=== PATIENT | male | born 1970 | race African-American/Black ===

== ENCOUNTER 2016-12-20 13:01 | Emergency (ER) | payer BC, OTHER ==
[2016-12-20] MEDS ORDERED: methylPREDNISolone Sodium Succinate 125 MG/2 ML SDV IM ONE (13:30)
--- NOTE | 2016-12-20 13:31 | EDM.PDOC ---
ED HPI GENERAL MEDICAL PROBLEM - General Chief Complaint: Skin Complaint Stated Complaint: RASH ON NECK Time Seen by Provider: 12/20/16 13:26 - History of Present Illness INITIAL COMMENTS - FREE TEXT/NARRATIVE: HISTORY AND PHYSICAL: History of present illness: The patient is a 46-year-old male who denies any pre-existing medical problems and follows with Dr. Cramer at [facility] and presents with a rash that is located on his upper extremities lower extremities and neck areas that he says he gets every year at this time of season change. The patient states that this round of the rash has been ongoing for the last several days but he has not seen his provider and has been using the cream that he was given last year for the same rash. The patient denies any systemic complaints of fever chills chest pain shortness of breath GI symptoms and has had no facial swelling sore throat or nasal congestion. The patient has not tried any eouh-psa-jeahpwa Benadryl Claritin or Noelle. The patient says he works on the [employer] and doesn't recall any specific contact with any new products that could've triggered this. He says that for the last several years this has not recurred always in the fall. Is never seen an ophthalmic surgical assistant or stile ripsaw operator. Review of systems: As per history of present illness and below otherwise all systems reviewed and negative. Past medical history: As per history of present illness and as reviewed below otherwise noncontributory. Surgical history: As per history of present illness and as reviewed below otherwise noncontributory. Social history: No reported history of drug or alcohol abuse. Family history: As per history of present illness and as reviewed below otherwise noncontributory. Physical exam: Gen.: Well-developed well-nourished man who is nontoxic and speaking clearly and easily in the ED. There is no visible evidence of any facial swelling HEENT: Atraumatic, normocephalic, pupils reactive, negative for conjunctival pallor or scleral icterus, mucous membranes moist, throat clear, neck supple, nontender, trachea midline. Lungs: Clear to auscultation, breath sounds equal bilaterally, chest nontender. Heart: S1S2, regular rate and rhythm no overt murmurs. Abdomen: Soft, nondistended, nontender. NABS Skin: There are raised urticarial small wheals noted on the upper thighs shoulders and neck area which are not confluent and there is some on the face as well. There are none on the back chest or abdomen. Genitourinary: Deferred. Rectal: Deferred. Extremities: Atraumatic, negative for cords or calf pain. Neurovascular unremarkable. Neuro: Awake, alert, oriented. Cranial nerves II through XII unremarkable. Cerebellum unremarkable. Motor and sensory unremarkable throughout. Exam nonfocal. Diagnostics: [] Therapeutics: SoluMedrol Patient states he needs to go to work later today so I'll refrain from giving him any Benadryl or Vistaril. I will send him home with advice to use over-the- counter Claritin or Noelle for the next 10 days as well as to use over-the- counter Benadryl for itching and A prednisone taper. I also advised that he needs to follow-up with his provider at [facility] for further care and evaluation Impression: Urticaria Definitive disposition and diagnosis as appropriate pending reevaluation and review of above. - Related Data Allergies Allergy/AdvReac Type Severity Reaction Status Date / Time No Known Allergies Allergy Verified 12/20/16 13:31 Home Meds: Home Meds . [No Known Home Meds] 12/20/16 [History] ED ROS GENERAL - Review of Systems Review Of Systems: ROS reveals no pertinent complaints other than HPI. ED EXAM, SKIN/RASH Exam: See Below (See dictation) Course - Orders/Labs/Meds Meds: Medications Discontinued Medications Generic Name Dose Route Start Last Admin Trade Name Steffenq PRN Reason Stop Dose Admin Methylprednisolone Sodium Succinate 125 mg 12/20/16 13:30 Solu-Medrol IM 12/20/16 13:31 ONETIME ONE Departure - Departure Time of Disposition: 13:36 Disposition: Home, Self-Care 01 Condition: Good Clinical Impression: Urticaria Contact dermatitis Qualifiers: Contact dermatitis type: unspecified Contact dermatitis trigger: unspecified trigger Qualified Code(s): L25.9 - Unspecified contact dermatitis, unspecified cause - Discharge Information Referrals: PCP,None [Primary Care Provider] - Forms: ED Department Discharge Additional Instructions: The following information is given to patients seen in the emergency department who are being discharged to home. This information is to outline your options for follow-up care. We provide all patients seen in our emergency department with a follow-up referral. The need for follow-up, as well as the timing and circumstances, are variable depending upon the specifics of your emergency department visit. If you don't have a primary care physician on staff, we will provide you with a referral. We always advise you to contact your personal physician following an emergency department visit to inform them of the circumstance of the visit and for follow-up with them and/or the need for any referrals to a consulting specialist. The emergency department will also refer you to a specialist when appropriate. This referral assures that you have the opportunity for followup care with a specialist. All of these measure are taken in an effort to provide you with optimal care, which includes your followup. Under all circumstances we always encourage you to contact your private physician who remains a resource for coordinating your care. When calling for followup care, please make the office aware that this follow-up is from your recent emergency room visit. If for any reason you are refused follow-up, please contact the [facility] emergency department at and ask to speak to the emergency department charge nurse. [address] [place] [address] Cramer for follow-up in the next few days for reevaluation and further care as we discussed. Return to ER as needed and as discussed. Please start taking zzod-smw-akwnlps Claritin or Noelle along with over-the- counter Benadryl 50 mg every 6 hours for itching when you're at home. Please do not take the Benadryl and go to work. Please also take the prednisone as prescribed and you can start this prescription tomorrow. Continue to use the cream that you have if you choose.
[2016-12-20 13:52] VITALS: BP 156/104
== END 2016-12-20 13:59 | disposition home or self-care (01) ==
LOC: MW.ED 13:01
DX: L25.9 Unspecified contact dermatitis, unspecified cause (principal); L50.9 Urticaria, unspecified
CPT/HCPCS: 96372; 99282; J2930

== ENCOUNTER 2018-08-08 08:51 | Emergency (ER) | payer OTHER ==
[2018-08-08] MEDS ORDERED: cefTRIAXone 1 GM in Lidocaine 1% 4 ML IM ONE (09:39)
--- NOTE | 2018-08-08 09:41 | EDM.PDOC ---
ED HPI GENERAL MEDICAL PROBLEM - General Chief Complaint: Back Pain or Injury Stated Complaint: BACK PAIN Time Seen by Provider: 08/08/18 09:27 - History of Present Illness INITIAL COMMENTS - FREE TEXT/NARRATIVE: HISTORY AND PHYSICAL: History of Present Illness INITIAL COMMENTS - FREE TEXT/NARRATIVE: HISTORY AND PHYSICAL: History of present illness: Patient's a 50-year-old black male presents with a concern of discomfort with urination and possible STD he states he had unprotected [place] he states it hilario when he urinates and he's had increased frequency. Review of systems: As per history of present illness and below otherwise all systems reviewed and negative. Past medical history: As per history of present illness and as reviewed below otherwise noncontributory. Surgical history: As per history of present illness and as reviewed below otherwise noncontributory. Social history: No reported history of drug or alcohol abuse. Family history: As per history of present illness and as reviewed below otherwise noncontributory. Physical exam: HEENT: Atraumatic, normocephalic, pupils reactive, negative for conjunctival pallor or scleral icterus, mucous membranes moist, throat clear, neck supple, nontender, trachea midline. Lungs: Clear to auscultation, breath sounds equal bilaterally, chest nontender. Heart: S1S2, regular, negative for clicks, rubs, or JVD. Abdomen: Soft, nondistended, nontender. Negative for masses or hepatosplenomegaly. Negative for costovertebral tenderness. Pelvis: Stable nontender. Genitourinary: Deferred. Rectal: Deferred. Extremities: Atraumatic, negative for cords or calf pain. Neurovascular unremarkable. Neuro: Awake, alert, oriented. Cranial nerves II through XII unremarkable. Cerebellum unremarkable. Motor and sensory unremarkable throughout. Exam nonfocal. Diagnostics: UA urine for GC chlamydia Therapeutics: Rocephin 250 mg IM Impression: #1 urethritis Definitive disposition and diagnosis as appropriate pending reevaluation and review of above. Definitive disposition and diagnosis as appropriate pending reevaluation and review of above. back Pain Score (Numeric/FACES): 10 - Related Data Allergies Allergy/AdvReac Type Severity Reaction Status Date / Time No Known Allergies Allergy Verified 08/08/18 09:14 Home Meds: Home Meds Metoprolol Succinate 25 mg PO DAILY 08/08/18 [History] Pantoprazole Sodium 40 mg PO DAILY 08/08/18 [History] Sacubitril/Valsartan [Entresto 24 mg-26 mg Tablet] 99 mg PO DAILY 08/08/18 [ History] Simvastatin 5 mg PO DAILY 08/08/18 [History] Spironolactone [Aldactone] 25 mg PO DAILY 08/08/18 [History] Past Medical History - Past Health History Medical/Surgical History: Denies Medical/Surgical History HEENT History: Reports: None Cardiovascular History: Reports: Arrhythmia, CAD, SD, Pacemaker Respiratory History: Reports: None Gastrointestinal History: Reports: None Genitourinary History: Reports: None Musculoskeletal History: Reports: None Neurological History: Reports: None Psychiatric History: Reports: None Endocrine/Metabolic History: Reports: None Hematologic History: Reports: None Immunologic History: Reports: None Oncologic (Cancer) History: Reports: None Dermatologic History: Reports: None - Past Surgical History Head Surgeries/Procedures: Reports: None HEENT Surgical History: Reports: None Cardiovascular Surgical History: Reports: None Respiratory Surgical History: Reports: None GI Surgical History: Reports: Hernia, Inguinal Male Surgical History: Reports: None Endocrine Surgical History: Reports: None Neurological Surgical History: Reports: None Musculoskeletal Surgical History: Reports: None Oncologic Surgical History: Reports: None Dermatological Surgical History: Reports: None Social & Family History - Family History Family Medical History: Noncontributory - Tobacco Use Smoking Status *Q: Never Smoker Second Hand Smoke Exposure: No - Caffeine Use Caffeine Use: Reports: None - Recreational Drug Use Recreational Drug Use: No - Living Situation & Occupation Living situation: Reports: , with Spouse, with Family (1 son) 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 ED EXAM, GENERAL - Physical Exam Exam: See Below (The dictation) Course - Vital Signs Last Recorded V/S: Last Vital Signs Temp 35.5 C 08/08/18 09:13 Pulse 59 L 08/08/18 09:13 Resp 18 08/08/18 09:13 BP 108/70 08/08/18 09:13 Pulse Ox 98 08/08/18 09:13 - Orders/Labs/Meds Orders: Active Orders 24 hr Category Date Time Status CHLAMYDIA AND GONORRHEA BY [facility]MA Stat Lab 08/08/18 09:38 Ordered UA RFX CARMINE AND CULT IF INDIC [URIN] Stat Lab 08/08/18 09:38 Ordered Meds: Medications Discontinued Medications Generic Name Dose Route Start Last Admin Trade Name Sravan PRN Reason Stop Dose Admin Ceftriaxone Sodium 1 gm/ 4 mls @ 4 mls/sec 08/08/18 09:39 Lidocaine HCl IM 08/08/18 09:40 ONETIME ONE Departure - Departure Time of Disposition: 09:46 Disposition: Home, Self-Care 01 Clinical Impression: Urethritis - Discharge Information Instructions: Urethritis, Adult Referrals: [facility] [Ordering Only Provider] - PCP,Unknown [Primary Care Provider] - Forms: ED Department Discharge Additional Instructions: The following information is given to patients seen in the emergency department who are being discharged to home. This information is to outline your options for follow-up care. We provide all patients seen in our emergency department with a follow-up referral. The need for follow-up, as well as the timing and circumstances, are variable depending upon the specifics of your emergency department visit. If you don't have a primary care physician on staff, we will provide you with a referral. We always advise you to contact your personal physician following an emergency department visit to inform them of the circumstance of the visit and for follow-up with them and/or the need for any referrals to a consulting specialist. The emergency department will also refer you to a specialist when appropriate. This referral assures that you have the opportunity for followup care with a specialist. All of these measure are taken in an effort to provide you with optimal care, which includes your followup. Under all circumstances we always encourage you to contact your private physician who remains a resource for coordinating your care. When calling for followup care, please make the office aware that this follow-up is from your recent emergency room visit. If for any reason you are refused follow-up, please contact the [facility] emergency department at and asked to speak to the emergency department charge nurse. [facility] [address] [place] [id number] Doxycycline as prescribed follow-up private medical doctor for reevaluation STD contact precautions as discussed and return as needed as discussed - My Orders Last 24 Hours: My Active Orders 08/08/18 09:38 CHLAMYDIA AND GONORRHEA BY TMA Stat UA RFX CARMINE AND CULT IF INDIC [URIN] Stat - Assessment/Plan Last 24 Hours: My Active Orders 08/08/18 09:38 CHLAMYDIA AND GONORRHEA BY TMA Stat UA RFX CARMINE AND CULT IF INDIC [URIN] Stat
[2018-08-08 10:14] VITALS: BP 102/65
== END 2018-08-08 10:10 | disposition home or self-care (01) ==
LOC: MW.ED 08:51
DX: N34.2 Other urethritis (principal); I25.10 Atherosclerotic heart disease of native coronary artery without angina pectoris; I25.2 Old myocardial infarction; Z95.0 Presence of cardiac pacemaker; Z79.899 Other long term (current) drug therapy
CPT/HCPCS: 81003; 87491; 87591; 96372; 99283; J0696; J2001

== ENCOUNTER 2019-11-13 09:24 | Emergency (ER) | payer BC, OTHER ==
[2019-11-13] MEDS ORDERED: Alum Hydrox/Mag Hydrox/Simeth 15 ML, Metoclopramide 5 MG, Lidocaine 2% 5 ML PO ONE ×3 (10:09)
--- NOTE | 2019-11-13 10:17 | EDM.PDOC ---
ED HPI GENERAL MEDICAL PROBLEM - General Chief Complaint: General Stated Complaint: FLU SYMPTOMS Time Seen by Provider: 11/13/19 10:02 Source of Information: Reports: Patient History Limitations: Reports: No Limitations - History of Present Illness INITIAL COMMENTS - FREE TEXT/NARRATIVE: HISTORY AND PHYSICAL: History of present illness: Patient is a 49-year-old male who presents to the emergency room with complaints of generalized upset stomach with a few episodes of diarrhea a couple days ago. He had a subjective fever a few days ago and today he has some generalized body aches with mild nausea. He is concerned he may have COVID-19. Patient denies any chills, headache, change in vision, syncope or near syncope. Denies any chest pain, back pain, shortness of breath or cough. Denies any vomiting, diarrhea, constipation or dysuria. Has not noted any blood in urine or stool. Patient has been eating and drinking appropriately. He reports he is currently unemployed and has been staying home with his . No one in the household is sick. Review of systems: As per history of present illness and below otherwise all systems reviewed and negative. Past medical history: As per history of present illness and as reviewed below otherwise noncontributory. Surgical history: As per history of present illness and as reviewed below otherwise noncontributory. Social history: See social history for further information Family history: As per history of present illness and as reviewed below otherwise noncontributory. Physical exam: General: Well developed and well nourished 49 year old Male. Alert and orientated x 3. Nontoxic in appearance and in no acute distress. Vital signs are stable and have been reviewed by me. Nursing notes were reviewed. HEENT: Atraumatic, normocephalic, pupils equal and reactive bilaterally, negative for conjunctival pallor or scleral icterus, mucous membranes moist, TMs normal bilaterally, throat clear, neck supple, nontender, trachea midline. No drooling or trismus noted. No meningeal signs. No hot potato voice noted. Lungs: Clear to auscultation, breath sounds equal bilaterally, chest nontender. Normal work of breathing, no accessory muscles used. Heart: S1S2, regular rate and rhythm without overt murmur Abdomen: Soft, nondistended, nontender. Negative for masses or hepatosplenomegaly. Negative for costovertebral tenderness. Skin: Intact, warm, dry. No lesions or rashes noted. Hematologic: No petechiae or purpra. Mucosa appropriate color and normal nail bed color and refill. Extremities: Atraumatic, moves all extremities per self without difficulty or deficits, negative for cords or calf pain. Neurovascular unremarkable. Neuro: Awake, alert, oriented. Cranial nerves II through XII unremarkable. Cerebellum unremarkable. Motor and sensory unremarkable throughout. Exam nonfocal. Notes: Physical exam is within normal limits, vital signs are stable, he is afebrile. Patient does not meet criteria for emergent COVID-19 testing. I will do a CBC and CMP regarding his intermittent generalized abdominal pain. GI cocktail has been given for comfort purposes. Lab work is unremarkable with the exception of slight leukopenia. Upon reevaluation/assessment, he is appropriate for discharge, he is no acute distress. Vital signs remained stable. We discussed signs and symptoms that would prompt them to return to the Emergency Department. Medication, follow up and supportive care measures were reviewed and discussed. Voices understanding and is agreeable to plan of care. Denies any further questions or concerns at this time. Diagnostics: CBC, CMP Therapeutics: GI cocktail Prescription: None Impression: Abdominal Pain Plan: 1. Today your physical exam normal. Your basic lab work was normal (CBC/CMP). You do not meet criteria for COVID testing in the ER. But the [facility] will gladly test you. 2. Alternate Tylenol and Ibuprofen as needed for pain. 3. We always encourage you to follow up with your primary care provider or recommended specialist in the next few days for re-evaluation and further care/management. If your symptoms should worsen, new symptoms develop or any of the signs and symptoms we discussed should arise please return to the emergency room or call 911 (if needed). Definitive disposition and diagnosis as appropriate pending reevaluation and review of above. abdomen Pain Score (Numeric/FACES): 5 - Related Data Allergies Allergy/AdvReac Type Severity Reaction Status Date / Time No Known Allergies Allergy Verified 11/13/19 09:51 Home Meds: Home Meds Metoprolol Succinate 25 mg PO DAILY 08/08/18 [History] Pantoprazole Sodium 40 mg PO DAILY 08/08/18 [History] Sacubitril/Valsartan [Entresto 24 mg-26 mg Tablet] 99 mg PO DAILY 08/08/18 [History] Simvastatin 5 mg PO DAILY 08/08/18 [History] Spironolactone [Aldactone] 25 mg PO DAILY 08/08/18 [History] Apixaban [Eliquis] 5 mg PO BID 11/13/19 [History] Past Medical History - Past Health History Medical/Surgical History: Denies Medical/Surgical History HEENT History: Reports: None Cardiovascular History: Reports: Arrhythmia, CAD, [place], Pacemaker Respiratory History: Reports: None Gastrointestinal History: Reports: None Genitourinary History: Reports: None Musculoskeletal History: Reports: None Neurological History: Reports: None Psychiatric History: Reports: None Endocrine/Metabolic History: Reports: None Hematologic History: Reports: None Immunologic History: Reports: None Oncologic (Cancer) History: Reports: None Dermatologic History: Reports: None - Infectious Disease History Infectious Disease History: Reports: Chicken Pox - Past Surgical History Head Surgeries/Procedures: Reports: None HEENT Surgical History: Reports: None Cardiovascular Surgical History: Reports: None Respiratory Surgical History: Reports: None GI Surgical History: Reports: Hernia, Inguinal Male Surgical History: Reports: None Endocrine Surgical History: Reports: None Neurological Surgical History: Reports: None Musculoskeletal Surgical History: Reports: None Oncologic Surgical History: Reports: None Dermatological Surgical History: Reports: None Social & Family History - Family History Family Medical History: Noncontributory - Tobacco Use Smoking Status *Q: Never Smoker Second Hand Smoke Exposure: No - Caffeine Use Caffeine Use: Reports: None - Recreational Drug Use Recreational Drug Use: No - Living Situation & Occupation Living situation: Reports: , with Spouse, with Family (1 son) 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 ED EXAM, GENERAL - Physical Exam Exam: See Below (See dictation) Course - Vital Signs Last Recorded V/S: Last Vital Signs Temp 97.0 F 11/13/19 09:49 Pulse 67 11/13/19 09:49 Resp 18 11/13/19 09:49 BP 113/74 11/13/19 09:49 Pulse Ox 99 11/13/19 09:49 - Orders/Labs/Meds Labs: Laboratory Tests 11/13/19 11/13/19 Range/Units 10:17 10:17 WBC 3.92 L (4.0-11.0) K/uL RBC 3.69 L (4.50-5.90) M/uL Hgb 11.5 L (13.0-17.0) g/dL Hct 34.9 L (38.0-50.0) % MCV 94.6 (80.0-98.0) fL MCH 31.2 (27.0-32.0) pg MCHC 33.0 (31.0-37.0) g/dL RDW Std Deviation 41.5 (28.0-62.0) fl RDW Coeff of Marielena 12 (11.0-15.0) % Plt Count 177 (150-400) K/uL MPV 10.30 (7.40-12.00) fL Add Manual Diff YES Neutrophils % (Manual) 40 L (48.0-80.0) % Lymphocytes % (Manual) 29 (16.0-40.0) % Monocytes % (Manual) 27 H (0.0-15.0) % Eosinophils % (Manual) 4 (0.0-7.0) % Nucleated RBC % 0.0 /100WBC Absolute Seg Neuts 1.6 (1.4-5.7) Lymphocytes # (Manual) 1.1 (0.6-2.4) Monocytes # (Manual) 1.1 H (0.0-0.8) Eosinophils # (Manual) 0.2 (0.0-0.7) Nucleated RBCs # 0 K/uL Sodium 139 (136-148) mmol/L Potassium 3.8 (3.5-5.1) mmol/L Chloride 106 (98-107) mmol/L Carbon Dioxide 23.6 (21.0-32.0) mmol/L BUN 10 (7.0-18.0) mg/dL Creatinine 1.3 (0.8-1.3) mg/dL Est Cr Clr Drug Dosing 67.23 mL/min Estimated GFR (MDRD) 58.2 ml/min Glucose 121 H (74-106) mg/dL Calcium 9.1 (8.5-10.1) mg/dL Total Bilirubin 0.2 (0.2-1.0) mg/dL AST 18 (15-37) IU/L ALT 19 (14-63) IU/L Alkaline Phosphatase 57 (46-116) U/L Total Protein 6.9 (6.4-8.2) g/dL Albumin 3.7 (3.4-5.0) g/dL Globulin 3.2 (2.6-4.0) g/dL Albumin/Globulin Ratio 1.2 (0.9-1.6) Meds: Medications Discontinued Medications Generic Name Dose Route Start Last Admin Trade Name Freq PRN Reason Stop Dose Admin Al Hydroxide/Mg Hydroxide 15 0 ml 11/13/19 10:09 11/13/19 10:22 ml/ Metoclopramide HCl 5 mg/ PO 11/13/19 10:10 25 each Lidocaine HCl 5 ml ONETIME ONE Administration Departure - Departure Time of Disposition: 10:53 Disposition: Home, Self-Care 01 Clinical Impression: Abdominal pain Qualifiers: Abdominal location: generalized Qualified Code(s): R10.84 - Generalized abdominal pain - Discharge Information Instructions: Abdominal Pain, Adult, [id number] Referrals: Ibis Cramer DO [Primary Care Provider] - Forms: ED Department Discharge Additional Instructions: The following information is given to patients seen in the emergency department who are being discharged to home. This information is to outline your options for follow-up care. We provide all patients seen in our emergency department with a follow-up referral. The need for follow-up, as well as the timing and circumstances, are variable depending upon the specifics of your emergency department visit. If you don't have a primary care physician on staff, we will provide you with a referral. We always advise you to contact your personal physician following an emergency department visit to inform them of the circumstance of the visit and for follow-up with them and/or the need for any referrals to a consulting specialist. The emergency department will also refer you to a specialist when appropriate. This referral assures that you have the opportunity for follow-up care with a specialist. All of these measure are taken in an effort to provide you with optimal care, which includes your follow-up. Under all circumstances we always encourage you to contact your private physician who remains a resource for coordinating your care. When calling for follow-up care, please make the office aware that this follow-up is from your recent emergency room visit. If for any reason you are refused follow-up, please contact the [facility] Emergency Department at and asked to speak to the emergency department charge nurse. [facility] [address] [place] [address] [facility] [address] [place] [address] Thank you for choosing the [facility] emergency department in [place] for your medical needs today. It was a pleasure caring for you. Today you were seen in the emergency department for abdominal pain and body aches. 1. Today your physical exam normal. Your basic lab work was normal (CBC/CMP). You do not meet criteria for COVID testing in the ER. But the outpatient Respiratory Clinic will gladly test you. 2. Alternate Tylenol and Ibuprofen as needed for pain. 3. We always encourage you to follow up with your primary care provider or r ecoended specialist in the next few days for re-evaluation and further care/management. If your symptoms should worsen, new symptoms develop or any of the signs and symptoms we discussed should arise please return to the emergency room or call 911 (if needed). Sepsis Event Note (ED) - Evaluation Sepsis Screening Result: No Definite Risk - Focused Exam Vital Signs: Vital Signs Temp Pulse Resp BP Pulse Ox 11/13/19 09:49 97.0 F 67 18 113/74 99
[2019-11-13 10:49] LABS: CARBON DIOXIDE,CO2 23.6 mmol/L (21.0-32.0); POTASSIUM,K 3.8 mmol/L (3.5-5.1)
[2019-11-13 12:50] VITALS: BP 105/65; PULSE 63
== END 2019-11-13 11:01 | disposition home or self-care (01) ==
LOC: MW.ED 09:24
DX: R10.84 Generalized abdominal pain (principal); R19.7 Diarrhea, unspecified; I25.10 Atherosclerotic heart disease of native coronary artery without angina pectoris; I25.2 Old myocardial infarction; Z79.01 Long term (current) use of anticoagulants
CPT/HCPCS: 36415; 80053; 85025; 99284; A9270; 99283

== ENCOUNTER 2020-05-15 09:06 | Emergency (ER) | payer MEDICAID ==
--- NOTE | 2020-05-15 09:24 | EDM.PDOC ---
ED HPI GENERAL MEDICAL PROBLEM - General Chief Complaint: Genitourinary Problem Stated Complaint: POSSIBLE STD Time Seen by Provider: 05/15/20 09:11 Source of Information: Reports: Patient History Limitations: Reports: No Limitations - History of Present Illness INITIAL COMMENTS - FREE TEXT/NARRATIVE: A 49-year-old male who presents today for burning with urination. Patient st ates that since has been in the states he has only been sick as with his and not use protection. Patient says he has a sensation of feels like there is pepper coming out of his penis. Patient denies any discharge or lesions no swelling to the area. Patient has any nausea vomiting fever chills or other complaints. - Related Data Allergies Allergy/AdvReac Type Severity Reaction Status Date / Time No Known Allergies Allergy Verified 05/15/20 09:18 Home Meds: Home Meds Metoprolol Succinate 25 mg PO DAILY 08/08/18 [History] Pantoprazole Sodium 40 mg PO DAILY 08/08/18 [History] Sacubitril/Valsartan [Entresto 24 mg-26 mg Tablet] 99 mg PO DAILY 08/08/18 [History] Simvastatin 5 mg PO DAILY 08/08/18 [History] Spironolactone [Aldactone] 25 mg PO DAILY 08/08/18 [History] Apixaban [Eliquis] 5 mg PO BID 11/13/19 [History] Doxycycline [Vibra-Tabs] 100 mg PO Q12HR 7 Days #14 tab 05/15/20 [Rx] Past Medical History - Past Health History Medical/Surgical History: Denies Medical/Surgical History HEENT History: Reports: None Cardiovascular History: Reports: Arrhythmia, CAD, [place], Pacemaker Respiratory History: Reports: None Gastrointestinal History: Reports: None Genitourinary History: Reports: None Musculoskeletal History: Reports: None Neurological History: Reports: None Psychiatric History: Reports: None Endocrine/Metabolic History: Reports: None Hematologic History: Reports: None Immunologic History: Reports: None Oncologic (Cancer) History: Reports: None Dermatologic History: Reports: None - Infectious Disease History Infectious Disease History: Reports: Chicken Pox - Past Surgical History Head Surgeries/Procedures: Reports: None HEENT Surgical History: Reports: None Cardiovascular Surgical History: Reports: None Respiratory Surgical History: Reports: None GI Surgical History: Reports: Hernia, Inguinal Male Surgical History: Reports: None Endocrine Surgical History: Reports: None Neurological Surgical History: Reports: None Musculoskeletal Surgical History: Reports: None Oncologic Surgical History: Reports: None Dermatological Surgical History: Reports: None Social & Family History - Family History Family Medical History: No Pertinent Family History - Caffeine Use Caffeine Use: Reports: None - Living Situation & Occupation Living situation: Reports: , with Spouse, with Family (1 son) 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) ED ROS GENERAL - Review of Systems Review Of Systems: See Below Constitutional: Reports: No Symptoms HEENT: Reports: No Symptoms Respiratory: Reports: No Symptoms Cardiovascular: Reports: No Symptoms Endocrine: Reports: No Symptoms GI/Abdominal: Reports: No Symptoms : Reports: Dysuria Musculoskeletal: Reports: No Symptoms Skin: Reports: No Symptoms Neurological: Reports: No Symptoms Psychiatric: Reports: No Symptoms Hematologic/Lymphatic: Reports: No Symptoms Immunologic: Reports: No Symptoms ED EXAM, RENAL/ - Physical Exam Exam: See Below Exam Limited By: No Limitations General Appearance: Alert, WD/WN Cardiovascular: Normal Peripheral Pulses GI/Abdominal: Normal Bowel Sounds, Soft (Male) Exam: No Hernia, Normal Inspection, Circumcised. No: Penile Lesions, Scrotal Swelling, Scrotum Tenderness (L), Scrotum Tenderness (R), Testicular Mass, Testicular Tenderness (L) Course - Vital Signs Last Recorded V/S: Last Vital Signs Temp 97.3 F 05/15/20 09:18 Pulse 60 05/15/20 09:18 Resp 18 05/15/20 09:18 BP 112/67 05/15/20 09:18 Pulse Ox 98 05/15/20 09:18 - Orders/Labs/Meds Orders: Active Orders 24 hr Category Date Time Status CHLAMYDIA AND GONORRHEA BY TMA Stat Lab 05/15/20 09:10 Received Labs: Laboratory Tests 05/15/20 Range/Units 09:11 Urine Color YELLOW Urine Appearance CLEAR Urine pH 6.0 (5.0-8.0) Ur Specific [place] 1.025 (1.001-1.035) Urine Protein NEGATIVE (NEGATIVE) mg/dL Urine Glucose (UA) NEGATIVE (NEGATIVE) mg/dL Urine Ketones NEGATIVE (NEGATIVE) mg/dL Urine Occult Blood NEGATIVE (NEGATIVE) Urine Nitrite NEGATIVE (NEGATIVE) Urine Bilirubin NEGATIVE (NEGATIVE) Urine Urobilinogen 0.2 (<2.0) EU/dL Ur Leukocyte Esterase NEGATIVE (NEGATIVE) Meds: Medications Discontinued Medications Generic Name Dose Route Start Last Admin Trade Name Sravan PRN Reason Stop Dose Admin Doxycycline Hyclate 100 mg 05/15/20 09:45 Vibramycin PO 05/15/20 09:46 ONETIME ONE Ceftriaxone Sodium 500 mg/ 1 mls @ 1 mls/sec 05/15/20 09:45 Lidocaine HCl IM 05/15/20 09:46 ONETIME ONE Departure - Departure Time of Disposition: 09:48 Disposition: Home, Self-Care 01 Condition: Good Clinical Impression: General medical exam - Discharge Information *PRESCRIPTION DRUG MONITORING PROGRAM REVIEWED*: Not Applicable *COPY OF PRESCRIPTION DRUG MONITORING REPORT IN PATIENT TITA: Not Applicable Prescriptions: Doxycycline [Vibra-Tabs] 100 mg PO Q12HR 7 Days #14 tab Instructions: Sexually Transmitted Disease, [id number] Forms: ED Department Discharge Additional Instructions: The following information is given to patients seen in the emergency department who are being discharged to home. This information is to outline your options for follow-up care. We provide all patients seen in our emergency department with a follow-up referral. The need for follow-up, as well as the timing and circumstances, are variable depending upon the specifics of your emergency department visit. If you don't have a primary care physician on staff, we will provide you with a referral. We always advise you to contact your personal physician following an emergency department visit to inform them of the circumstance of the visit and for follow-up with them and/or the need for any referrals to a consulting specialist. The emergency department will also refer you to a specialist when appropriate. This referral assures that you have the opportunity for follow-up care with a specialist. All of these measure are taken in an effort to provide you with optimal care, which includes your follow-up. Under all circumstances we always encourage you to contact your private physician who remains a resource for coordinating your care. When calling for follow-up care, please make the office aware that this follow-up is from your recent emergency room visit. If for any reason you are refused follow-up, please contact the [facility] Emergency Department at and asked to speak to the emergency department charge nurse. Please follow up with your primary care physician. If you do not have a primary care physician, see below: [facility] [address] [place], [place] [address] My [facility] [address] [place], [place] [address] Please follow-up with your primary care physician. If you have any increased pain or discharge please return to the ED. We will treat you for your complaint today we will call you in 2 to 3 days if your results are positive if they are negative we do not receive a call from us. Sepsis Event Note (ED) - Evaluation Sepsis Screening Result: No Definite Risk - Focused Exam Vital Signs: Vital Signs Temp Pulse Resp BP Pulse Ox 05/15/20 09:18 97.3 F 60 18 112/67 98 - My Orders Last 24 Hours: My Active Orders 05/15/20 09:10 CHLAMYDIA AND GONORRHEA BY TMA Stat - Assessment/Plan Last 24 Hours: My Active Orders 05/15/20 09:10 CHLAMYDIA AND GONORRHEA BY TMA Stat Plan: Patient is a 49-year-old male who presents today for STD check. Patient states that he has a burning sensation when he urinates. Patient has no penile lesions no scrotal tenderness. Will obtain GC chlamydia and reassess. Will be treated for GC chlamydia and will be call results.
[2020-05-15 09:27] VITALS: BP 112/67; PULSE 60
[2020-05-15] MEDS ORDERED: cefTRIAXone 500 MG in Lidocaine 1% 1 ML IM ONE (09:45)
[2020-05-15] MEDS ORDERED: Doxycycline 100 MG Cap PO ONE (09:45)
[2020-05-16 11:03] LABS: C.TRACHOMATIS BY TMA Negative (Negative); N.GONORRHOEAE BY TMA Negative (Negative)
== END 2020-05-15 10:13 | disposition home or self-care (01) ==
LOC: MW.ED 09:06
DX: Z20.2 Contact with and (suspected) exposure to infections with a predominantly sexual mode of transmission (principal); I25.2 Old myocardial infarction; I25.10 Atherosclerotic heart disease of native coronary artery without angina pectoris; Z79.01 Long term (current) use of anticoagulants; Z79.899 Other long term (current) drug therapy
CPT/HCPCS: 81003; 87491; 87591; 96372; 99283; A9270; J0696; 99282

== ENCOUNTER 2020-10-26 16:41 | Emergency (ER) | payer MEDICAID ==
[2020-10-26] MEDS ORDERED: Sodium Chloride 0.9% 10 ML Syringe FLUSH PRN (17:01)
[2020-10-26] MEDS ORDERED: Sodium Chloride 0.9% 2.5 ML Syringe FLUSH PRN (17:01)
[2020-10-26] MEDS ORDERED: Alum Hydrox/Mag Hydrox/Simeth 15 ML, Lidocaine 2% 5 ML PO ONE ×2 (17:03)
[2020-10-26] MEDS ORDERED: Dexamethasone 4 MG/ML SDV IVPUSH ONE (17:09)
--- NOTE | 2020-10-26 17:11 | EDM.PDOC ---
<Mateus Martell - Last Filed: 10/26/20 18:13> ED HPI GENERAL MEDICAL PROBLEM - General Chief Complaint: ENT Problem Stated Complaint: SORE THROAT Time Seen by Provider: 10/26/20 16:47 Source of Information: Reports: Patient History Limitations: Reports: No Limitations - History of Present Illness INITIAL COMMENTS - FREE TEXT/NARRATIVE: 50-year-old male presents for right-sided throat and neck pain. Patient first noted symptoms about 4 days ago and they seem to be worsening. He notes pain when swallowing. He denies any fevers, cough. The pain is in his right posterior throat, anterior neck. He denies any difficulty breathing. Right Throat Pain Score (Numeric/FACES): 10 - Related Data Allergies Allergy/AdvReac Type Severity Reaction Status Date / Time No Known Allergies Allergy Verified 10/26/20 17:01 Home Meds: Home Meds Metoprolol Succinate 25 mg PO DAILY 08/08/18 [History] Pantoprazole Sodium 40 mg PO DAILY 08/08/18 [History] Sacubitril/Valsartan [Entresto 24 mg-26 mg Tablet] 99 mg PO DAILY 08/08/18 [History] Simvastatin 5 mg PO DAILY 08/08/18 [History] Spironolactone [Aldactone] 25 mg PO DAILY 08/08/18 [History] Apixaban [Eliquis] 5 mg PO BID 11/13/19 [History] Doxycycline [Vibra-Tabs] 100 mg PO Q12HR 7 Days #14 tab 05/15/20 [Rx] Past Medical History - Past Health History Medical/Surgical History: Denies Medical/Surgical History HEENT History: Reports: None Cardiovascular History: Reports: Arrhythmia, CAD, [place], Pacemaker Respiratory History: Reports: None Gastrointestinal History: Reports: None Genitourinary History: Reports: None Musculoskeletal History: Reports: None Neurological History: Reports: None Psychiatric History: Reports: None Endocrine/Metabolic History: Reports: None Hematologic History: Reports: None Immunologic History: Reports: None Oncologic (Cancer) History: Reports: None Dermatologic History: Reports: None - Infectious Disease History Infectious Disease History: Reports: Chicken Pox, Novel Coronavirus - Past Surgical History Head Surgeries/Procedures: Reports: None HEENT Surgical History: Reports: None Cardiovascular Surgical History: Reports: None Respiratory Surgical History: Reports: None GI Surgical History: Reports: Hernia, Inguinal Male Surgical History: Reports: None Endocrine Surgical History: Reports: None Neurological Surgical History: Reports: None Musculoskeletal Surgical History: Reports: None Oncologic Surgical History: Reports: None Dermatological Surgical History: Reports: None Social & Family History - Family History Family Medical History: No Pertinent Family History - Caffeine Use Caffeine Use: Reports: None - Living Situation & Occupation Living situation: Reports: , with Spouse, with Family (1 son) 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 ED EXAM, GENERAL - Physical Exam Exam: See Below Exam Limited By: No Limitations General Appearance: Alert, WD/WN, No Apparent Distress Ears: Hearing Grossly Normal Throat/Mouth: Normal Voice, No Airway Compromise Head: Atraumatic, Normocephalic Neck: Normal Inspection, Supple, Other (no palpable masses or lymphadenopathy; does have TTP of right anterior neck, no stridor) Respiratory/Chest: No Respiratory Distress, Lungs Clear, Normal Breath Sounds, No Accessory Muscle Use Cardiovascular: Normal Peripheral Pulses, Regular Rate, Rhythm Extremities: Normal Inspection Neurological: Alert, Normal Cognition, Normal Gait Psychiatric: Normal Affect, Normal Mood Skin Exam: Warm, Dry, Intact, Normal Color Course - Re-Assessments/Exams Free Text/Narrative Re-Assessment/Exam: 10/26/20 17:10 Uncertain the etiology of patient's symptoms. Will give GI cocktail for symptomatic relief. Give Decadron for inflammation. Will get CT scan of the neck to ensure no deep space abscess or other abnormality. 10/26/20 18:13 Patient's blood work is unremarkable. Will follow-up CT imaging of the neck and disposition accordingly. Departure - Departure Disposition: Home, Self-Care 01 Clinical Impression: Sialolith, Pituitary mass - Discharge Information Instructions: Salivary Stone, Pituitary Tumors Referrals: Ibis Cramer DO [Primary Care Provider] - Forms: ED Department Discharge Additional Instructions: You were evaluated today on an emergent basis. At this time there is evidence of some inflammation in the salivary glands. I do recommend that you use lemon drops to help ease this pain. If you have any worsening pain or swelling I recommend he follow-up in the emergency department or your primary care physician. Please return if you have any drooling, trouble breathing. In addit ion incidentally we did find a pituitary mass. It is extremely important that you follow-up with your primary care physician for obtaining an MRI and further evaluation. I would like you to follow-up with your primary care physician within 1 to 3 days. [facility] - Primary Care [address] [place] [address] [facility] [address] [place] [id number] The patient is informed of any results of their evaluation and diagnostic workup and all questions are answered. They are given discharge instructions and return precautions. The patient is stable for discharge. The patient states they understand and agree with the plan and that they will return if their symptoms get worse or if they have any new concerns. The following information is given to patients seen in the emergency department who are being discharged to home. This information is to outline your options for follow-up care. We provide all patients seen in our emergency department with a follow-up referral. The need for follow-up, as well as the timing and circumstances, are variable depending upon the specifics of your emergency department visit. If you don't have a primary care physician on staff, we will provide you with a referral. We always advise you to contact your personal physician following an emergency department visit to inform them of the circumstance of the visit and for follow-up with them and/or the need for any referrals to a consulting specialist. The emergency department will also refer you to a specialist when appropriate. This referral assures that you have the opportunity for follow-up care with a specialist. All of these measure are taken in an effort to provide you with optimal care, which includes your follow-up. Under all circumstances we always encourage you to contact your private physician who remains a resource for coordinating your care. When calling for follow-up care, please make the office aware that this follow-up is from your recent emergency room visit. If for any reason you are refused follow-up, please contact the [facility] Emergency Department at and asked to speak to the emergency department charge nurse. Sepsis Event Note (ED) - Evaluation Sepsis Screening Result: No Definite Risk <You Arambula - Last Filed: 10/28/20 06:20> ED HPI GENERAL MEDICAL PROBLEM - History of Present Illness INITIAL COMMENTS - FREE TEXT/NARRATIVE: Patient was signed out to me by Dr. Martell pending CT at 7PM I did reevaluate the patient and patient continued to remain stable there was no abnormality in his vital signs. The radiological images were viewed by myself along with reading the report from the radiologist. Soft tissue neck CT revealed a pituitary mass measuring 2.4 cm x 2.7 cm. There is prominent bilateral right greater than left submandibular intraglandular salivary ducts which may represent sequela of sialolithiasis without evidence of obstructing calculus. I did discuss the results with the patient. Encourage the patient to follow-up with his primary care physician. He is to return for any new or worsening symptoms. He was amenable discharge at this time and had no further questions. DISPOSITION: The patient was discharged home in stable condition. The patient will follow up with primary care physician in 1 to 3 days CONDITION: Fair PROCEDURES: None FINAL IMPRESSION(S)/DIAGNOSES: 1. Acute throat pain possibly secondary to sialoadenitis 2. Pituitary mass You Arambula M.D. Course - Vital Signs Last Recorded V/S: Last Vital Signs Temp 36.1 C 10/26/20 17:52 Pulse 80 10/26/20 20:12 Resp 15 10/26/20 20:12 BP 103/74 10/26/20 20:12 Pulse Ox 100 10/26/20 20:12 - Orders/Labs/Meds Labs: Laboratory Tests 10/26/20 10/26/20 Range/Units 17:30 17:30 WBC 4.06 (4.0-11.0) K/uL RBC 3.70 L (4.50-5.90) M/uL Hgb 11.4 L (13.0-17.0) g/dL Hct 34.5 L (38.0-50.0) % MCV 93.2 (80.0-98.0) fL MCH 30.8 (27.0-32.0) pg MCHC 33.0 (31.0-37.0) g/dL RDW Std Deviation 42.3 (28.0-62.0) fl RDW Coeff of Marielena 12 (11.0-15.0) % Plt Count 215 (150-400) K/uL MPV 10.00 (7.40-12.00) fL Neut % (Auto) 29.8 L (48.0-80.0) % Lymph % (Auto) 56.9 H (16.0-40.0) % Piute % (Auto) 10.3 (0.0-15.0) % Eos % (Auto) 2.5 (0.0-7.0) % Baso % (Auto) 0.5 (0.0-1.5) % Neut # (Auto) 1.2 L (1.4-5.7) K/uL Lymph # (Auto) 2.3 (0.6-2.4) K/uL Piute # (Auto) 0.4 (0.0-0.8) K/uL Eos # (Auto) 0.1 (0.0-0.7) K/uL Baso # (Auto) 0.0 (0.0-0.1) K/uL Nucleated RBC % 0.0 /100WBC Nucleated RBCs # 0 K/uL Sodium 143 (136-148) mmol/L Potassium 3.8 (3.5-5.1) mmol/L Chloride 108 H (98-107) mmol/L Carbon Dioxide 26.8 (21.0-32.0) mmol/L BUN 14 (7.0-18.0) mg/dL Creatinine 1.0 (0.8-1.3) mg/dL Est Cr Clr Drug Dosing 92.03 mL/min Estimated GFR (MDRD) > 60.0 ml/min Glucose 98 (74-106) mg/dL Calcium 8.6 (8.5-10.1) mg/dL Total Bilirubin 0.2 (0.2-1.0) mg/dL AST 19 (15-37) IU/L ALT 23 (14-63) IU/L Alkaline Phosphatase 57 (46-116) U/L Total Protein 6.6 (6.4-8.2) g/dL Albumin 3.8 (3.4-5.0) g/dL Globulin 2.8 (2.6-4.0) g/dL Albumin/Globulin Ratio 1.4 (0.9-1.6) Meds: Medications Discontinued Medications Generic Name Dose Route Start Last Admin Trade Name Freq PRN Reason Stop Dose Admin Al Hydroxide/Mg Hydroxide 15 0 ml 10/26/20 17:03 10/26/20 17:47 ml/ Lidocaine HCl 5 ml PO 10/26/20 17:04 1 each ONETIME ONE Administration Dexamethasone 6 mg 10/26/20 17:09 10/26/20 17:47 Dexamethasone 4 Mg/Ml Sdv IVPUSH 10/26/20 17:10 6 mg ONETIME ONE Administration Iopamidol 75 ml 10/26/20 18:45 10/26/20 18:45 Iopamidol 755 Mg/Ml 500 Ml Multipack Bottle IVPUSH 10/26/20 18:46 75 ml ONETIME ONE Administration Sodium Chloride 10 ml 10/26/20 17:01 10/26/20 17:48 Sodium Chloride 0.9% 10 Ml Syringe FLUSH 10 ml ASDIRECTED PRN Administration Keep Vein Open Sodium Chloride 2.5 ml 10/26/20 17:01 10/26/20 17:48 Sodium Chloride 0.9% 2.5 Ml Syringe FLUSH 2.5 ml ASDIRECTED PRN Administration Keep Vein Open Departure - Departure Time of Disposition: 19:45 Condition: Fair - Discharge Information *PRESCRIPTION DRUG MONITORING PROGRAM REVIEWED*: No *COPY OF PRESCRIPTION DRUG MONITORING REPORT IN PATIENT TITA: No
[2020-10-26 18:11] LABS: BLOOD UREA NITROGEN,BUN 14 mg/dL (7.0-18.0); CARBON DIOXIDE,CO2 26.8 mmol/L (21.0-32.0); CHLORIDE,CL 108 mmol/L (98-107); GLUCOSE RANDOM 98 mg/dL (74-106); POTASSIUM,K 3.8 mmol/L (3.5-5.1); SODIUM,NA 143 mmol/L (136-148)
[2020-10-26] MEDS ORDERED: Iopamidol 755 MG/ML 500 ML Multipack Bottle IVPUSH ONE (18:45)
--- NOTE | 2020-10-26 19:34 | CT ---
Indication: Right-sided neck and throat pain Technique: Volumetric multidetector CT images of the cervical soft tissues were obtained after the administration of low osmolar intravenous contrast. 75 cc Isovue 370 low osmolar intravenous contrast Comparison: None available. Findings: The partially visualized brain parenchyma demonstrates a enhancing pituitary gland mass with extension into the suprasellar cistern and abutment of the optic chiasm measuring up to 2.4 centimeters in craniocaudal and 2.7 centimeters in transverse dimensions with partial encasement of the right carotid artery terminus. Otherwise, the partially visualized brain parenchyma is preserved in attenuation and enhancement. The orbits and their contents are within normal limits. There is minimal mucosal thickening seen within the paranasal sinuses. The mastoid air cells are clear. The nasopharynx is unremarkable. The fossae of Rosenmuller are clear. The oropharynx is unremarkable. The hypopharynx is clear. There are prominent intraglandular ducts within the right greater than left submandibular glands which may represent sequela of silo lithiasis. There is no definite evidence of obstructing sialolith in the floor of mouth. The vocal folds are nonthickened with symmetrical appearance. The thyroid gland is normal in attenuation. There is no evidence of pathologically enlarged cervical lymph node. The jugular veins are patent. The carotid arteries demonstrate no significant atherosclerotic narrowing. The lung apices are clear. The cervical vertebral body heights are grossly maintained with straightening of the normal cervical lordosis. There is no significant spondylolisthesis or displaced fracture. 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 Recommend follow-up with MRI of the pituitary gland on outpatient basis for improved characterization. Correlate with history of clinical symptoms. Prominent bilateral right greater than left submandibular intraglandular salivary ducts which may represent sequela of sialolithiasis without evidence of definite obstructing calculus or distal ductal dilatation. Please note that all CT scans at this facility use dose modulation, iterative reconstruction, and/or weight-based dosing when appropriate to reduce radiation dose to as low as reasonably achievable. Dictated by Yohannes Winkler MD @ 10/26/2020 7:32:[address] Yohannes Winkler @ Oct 26 2020 7:32PM
[2020-10-26 20:13] VITALS: BP 103/74; PULSE 80
== END 2020-10-26 20:13 | disposition home or self-care (01) ==
LOC: MW.ED 16:41
DX: K11.5 Sialolithiasis (principal); R22.0 Localized swelling, mass and lump, head; I25.10 Atherosclerotic heart disease of native coronary artery without angina pectoris; I25.2 Old myocardial infarction; Z95.0 Presence of cardiac pacemaker; Z86.16 Personal history of COVID-19; Z79.01 Long term (current) use of anticoagulants; Z79.899 Other long term (current) drug therapy
CPT/HCPCS: 36415; 70491; 80053; 85025; 96374; 99284; A9270; J1100; Q9967

== ENCOUNTER 2021-07-28 07:32 | Emergency (ER) | payer MEDICAID ==
[2021-07-28 07:53] VITALS: PULSE 60
[2021-07-28 09:32] LABS: BLOOD UREA NITROGEN,BUN 17 mg/dL (7.0-18.0); CARBON DIOXIDE,CO2 25.3 mmol/L (21.0-32.0); CHLORIDE,CL 107 mmol/L (98-107); GLUCOSE RANDOM 113 mg/dL (74-106); SODIUM,NA 140 mmol/L (136-148)
[2021-07-28] MEDS ORDERED: Sotalol 80 MG Tab PO SCH (11:45)
[2021-07-28] MEDS ORDERED: Magnesium Sulfate/Water 2 GM in Premix Bag 1 BAG IV ONE (11:53)
[2021-07-28 12:14] VITALS: BP 109/73
== END 2021-07-28 14:22 ==
LOC: MW.ED 07:32
DX: T82.897A Other specified complication of cardiac prosthetic devices, implants and grafts, initial encounter (principal); I48.91 Unspecified atrial fibrillation; I25.10 Atherosclerotic heart disease of native coronary artery without angina pectoris; I25.2 Old myocardial infarction; Z95.0 Presence of cardiac pacemaker; Z79.01 Long term (current) use of anticoagulants; Z79.899 Other long term (current) drug therapy; Z86.16 Personal history of COVID-19; Z20.822 Contact with and (suspected) exposure to COVID-19
CPT/HCPCS: 36415; 71045; 80053; 83735; 84484; 85025; 87635; 93005; 96365; 96366; 99285; A9270; J3475; U0002

== ENCOUNTER 2021-09-20 00:10 | Emergency (ER) | payer MEDICAID ==
[2021-09-20 00:23] VITALS: PULSE 60
[2021-09-20] MEDS ORDERED: Sodium Chloride 0.9% 2.5 ML Syringe FLUSH PRN (00:36)
[2021-09-20] MEDS ORDERED: Sodium Chloride 0.9% 10 ML Syringe FLUSH PRN (00:36)
[2021-09-20 00:56] LABS: CARBON DIOXIDE,CO2 29.1 mmol/L (21.0-32.0)
[2021-09-20 01:33] VITALS: BP 105/65
== END 2021-09-20 01:31 | disposition home or self-care (01) ==
LOC: MW.ED 00:10
DX: R07.9 Chest pain, unspecified (principal); I25.2 Old myocardial infarction; I25.10 Atherosclerotic heart disease of native coronary artery without angina pectoris; F17.210 Nicotine dependence, cigarettes, uncomplicated; Z86.16 Personal history of COVID-19; Z79.899 Other long term (current) drug therapy
CPT/HCPCS: 36415; 71045; 80053; 84484; 85025; 85379; 93005; 99285; J3490; 93010; 99284

== ENCOUNTER 2021-09-21 00:53 | Emergency (ER) | payer MEDICAID ==
[2021-09-21] MEDS ORDERED: Aspirin 81 MG Tab.Chew PO ONE (00:56)
[2021-09-21 02:40] LABS: CARBON DIOXIDE,CO2 24.5 mmol/L (21.0-32.0); POTASSIUM,K 4.1 mmol/L (3.5-5.1)
[2021-09-21 05:16] VITALS: BP 115/75; PULSE 59
== END 2021-09-21 05:24 | disposition home or self-care (01) ==
LOC: MW.ED 00:53
DX: R07.89 Other chest pain (principal); I25.2 Old myocardial infarction; Z79.899 Other long term (current) drug therapy
CPT/HCPCS: 36415; 71045; 80053; 84484; 85025; 85610; 93005; 99285; A9270; 93010; 99284

== ENCOUNTER 2021-11-07 09:06 | Emergency (ER) | payer MEDICAID ==
[2021-11-07] MEDS ORDERED: Ibuprofen 400 MG Tab PO ONE (09:34)
[2021-11-07] MEDS ORDERED: Acetaminophen 325 MG Tab PO ONE (09:34)
[2021-11-07] MEDS ORDERED: Lidocaine 5% 700 MG Patch TOP ONE (09:34)
[2021-11-07 11:13] VITALS: BP 94/59; PULSE 59
== END 2021-11-07 11:13 | disposition home or self-care (01) ==
LOC: MW.ED 09:06
DX: M54.50 Low back pain, unspecified (principal); I25.10 Atherosclerotic heart disease of native coronary artery without angina pectoris; I25.2 Old myocardial infarction; Z95.0 Presence of cardiac pacemaker; Z79.01 Long term (current) use of anticoagulants; Z79.899 Other long term (current) drug therapy; Z86.16 Personal history of COVID-19
CPT/HCPCS: 72100; 81003; 99283; A9270; 99282

== ENCOUNTER 2022-03-25 12:15 | Emergency (ER) | payer MEDICAID ==
[2022-03-25 12:52] VITALS: BP 96/63; PULSE 60
== END 2022-03-25 13:06 | disposition left against medical advice (07) ==
LOC: MW.ED 12:15
DX: Z53.21 Procedure and treatment not carried out due to patient leaving prior to being seen by health care provider (principal)

== ENCOUNTER 2022-11-02 12:25 | Emergency (ER) | payer SELFPAY ==
[2022-11-02] MEDS ORDERED: Acetaminophen 500 MG Tab PO STA (14:00)
[2022-11-02 15:52] VITALS: BP 96/61; PULSE 66
== END 2022-11-02 15:56 | disposition home or self-care (01) ==
LOC: MW.ED 12:25
DX: M54.50 Low back pain, unspecified (principal); Z79.899 Other long term (current) drug therapy; Z79.01 Long term (current) use of anticoagulants; Z79.82 Long term (current) use of aspirin; Z86.16 Personal history of COVID-19; X50.0XXA Overexertion from strenuous movement or load, initial encounter; Y92.69 Other specified industrial and construction area as the place of occurrence of the external cause
CPT/HCPCS: 72100; 99283; A9270

== ENCOUNTER 2023-06-07 04:25 | Emergency (ER) | payer SELFPAY ==
[2023-06-07] MEDS: Lidocaine 1% with EPINEPHrine 1:200,000 30 ML SDV INFILT STA (04:31)
[2023-06-07] MEDS: Bupivacaine 0.5% 10 ML SDV INJECT ONE (04:31)
[2023-06-07 04:33] VITALS: BP 113/74; PULSE 60
[2023-06-07] MEDS: Acetaminophen/HYDROcodone 325-10 MG Tab PO ONE (04:48)
== END 2023-06-07 04:56 | disposition home or self-care (01) ==
LOC: MW.ED 04:25
DX: K08.89 Other specified disorders of teeth and supporting structures (principal); I11.0 Hypertensive heart disease with heart failure; I50.9 Heart failure, unspecified; Z79.899 Other long term (current) drug therapy
CPT/HCPCS: 64400; 99282; A9270; J0665; J3490; 99283

== ENCOUNTER 2023-06-07 14:26 | Emergency (ER) | payer SELFPAY ==
[2023-06-07 15:31] VITALS: PULSE 60
[2023-06-07] MEDS: HYDROmorphone 1 MG/ML Syringe IM ONE (16:06)
[2023-06-07 16:57] VITALS: BP 111/62
== END 2023-06-07 17:03 | disposition home or self-care (01) ==
LOC: MW.ED 14:26
DX: K08.89 Other specified disorders of teeth and supporting structures (principal); I11.0 Hypertensive heart disease with heart failure; I50.9 Heart failure, unspecified; Z79.01 Long term (current) use of anticoagulants; Z79.82 Long term (current) use of aspirin; Z79.899 Other long term (current) drug therapy
CPT/HCPCS: 96372; 99282; J1170; 99283

== ENCOUNTER 2023-06-18 14:37 | Emergency (ER) | payer SELFPAY ==
[2023-06-18] MEDS: Sodium Chloride 0.9% 2.5 ML Syringe FLUSH PRN (14:49)
[2023-06-18] MEDS: Sodium Chloride 0.9% 10 ML Syringe FLUSH PRN (14:49)
[2023-06-18 15:05] LABS: BASOPHILS ABSOLUTE AUTO 0.03 K/uL (0.00-0.20); BASOPHILS PERCENT AUTO 0.7 % (0.0-1.0); EOSINOPHILS ABSOLUTE AUTO 0.09 K/uL (0.00-0.45); HEMATOCRIT 37.2 % (42.0-52.0); HEMOGLOBIN 12.5 g/dL (14.0-18.0); IMMATURE GRAN ABSOLUTE AUTO 0.01 K/uL (0.00-0.05); IMMATURE GRAN PERCENT AUTO 0.2 % (0.0-0.4); LYMPHOCYTES ABSOLUTE AUTO 1.76 K/uL (1.00-4.80); LYMPHOCYTES PERCENT AUTO 39.5 % (24.0-44.0); MEAN CORPUSCULAR HEMOGLOBIN 32.1 pg (28.0-32.0); MEAN CORPUSCULAR HGB CONC 33.6 g/dL (32.0-36.0); MEAN CORPUSCULAR VOLUME 95.4 fL (83.0-99.0); MEAN PLATELET VOLUME 9.1 fL (9.4-12.4); MONOCYTES ABSOLUTE AUTO 0.43 K/uL (0.00-0.80); MONOCYTES PERCENT AUTO 9.6 % (0.0-8.0); NEUTROPHILS ABSOLUTE AUTO 2.14 K/uL (1.80-7.70); PLATELET COUNT,PLT 264 K/uL (150-400); WHITE BLOOD CELL COUNT,WBC 4.46 K/uL (3.9-11.3)
[2023-06-18 15:32] LABS: A/G RATIO 1.1 (0.9-1.6); ALBUMIN 3.4 g/dL (3.4-5.0); BILIRUBIN TOTAL 0.1 mg/dL (0.2-1.0); CALCIUM 9.1 mg/dL (8.5-10.1); CARBON DIOXIDE,CO2 26.3 mmol/L (21.0-32.0); CREATININE 1.1 mg/dL (0.8-1.3); EST CRCL DRUG DOSING (CG) 81.77 mL/min; POTASSIUM,K 4.2 mmol/L (3.5-5.1); PROTEIN TOTAL,TP 6.5 g/dL (6.4-8.2)
[2023-06-18] MEDS: Dicyclomine 10 MG Cap PO ONE (15:36)
[2023-06-18 15:43] LABS: CORONAVIRUS COVID-19 NAA NEGATIVE (NEGATIVE); INFLUENZA A NAA NEGATIVE (NEGATIVE); INFLUENZA B NAA NEGATIVE (NEGATIVE)
[2023-06-18 17:59] VITALS: BP 90/45; PULSE 60
== END 2023-06-18 17:58 | disposition home or self-care (01) ==
LOC: MW.ED 14:37
DX: R10.13 Epigastric pain (principal); I11.0 Hypertensive heart disease with heart failure; I50.9 Heart failure, unspecified; Z75.8 Other problems related to medical facilities and other health care; Z79.82 Long term (current) use of aspirin; Z79.899 Other long term (current) drug therapy
CPT/HCPCS: 0240U; 36415; 71045; 80053; 83690; 84484; 85025; 93005; 99284; A9270; J3490; 93010; 99283

== ENCOUNTER 2024-05-03 17:25 | Emergency (ER) | payer MEDICAID ==
[2024-05-03 17:42] VITALS: BP 168/107; PULSE 70
[2024-05-03 19:50] LABS: BASOPHILS ABSOLUTE AUTO 0.02 K/uL (0.00-0.20); BASOPHILS PERCENT AUTO 0.4 % (0.0-1.0); HEMATOCRIT 36.2 % (42.0-52.0); IMMATURE GRAN ABSOLUTE AUTO 0.01 K/uL (0.00-0.05); IMMATURE GRAN PERCENT AUTO 0.2 % (0.0-0.4); LYMPHOCYTES ABSOLUTE AUTO 1.94 K/uL (1.00-4.80); LYMPHOCYTES PERCENT AUTO 37.9 % (24.0-44.0); MEAN CORPUSCULAR HEMOGLOBIN 31.5 pg (28.0-32.0); MEAN CORPUSCULAR HGB CONC 33.1 g/dL (32.0-36.0); MEAN PLATELET VOLUME 9.5 fL (9.4-12.4); MONOCYTES PERCENT AUTO 11.7 % (0.0-8.0); NEUTROPHILS ABSOLUTE AUTO 2.45 K/uL (1.80-7.70); NEUTROPHILS PERCENT AUTO 47.8 % (41.0-71.0); PLATELET COUNT,PLT 235 K/uL (150-400); RED BLOOD CELL COUNT 3.81 M/uL (4.52-5.90); WHITE BLOOD CELL COUNT,WBC 5.12 K/uL (3.9-11.3)
[2024-05-03 20:14] LABS: A/G RATIO 0.9 (0.9-1.6); ALBUMIN 3.4 g/dL (3.4-5.0); BILIRUBIN TOTAL 0.2 mg/dL (0.2-1.0); CARBON DIOXIDE,CO2 25.9 mmol/L (21.0-32.0); CREATININE 1.5 mg/dL (0.8-1.3); EST CRCL DRUG DOSING (CG) 59.26 mL/min; MAGNESIUM 2.1 mg/dL (1.8-2.4); POTASSIUM,K 4.6 mmol/L (3.5-5.1)
== END 2024-05-04 00:18 | disposition left against medical advice (07) ==
LOC: MW.ED 17:25
DX: R07.89 Other chest pain (principal); I11.0 Hypertensive heart disease with heart failure; I50.9 Heart failure, unspecified; Z75.8 Other problems related to medical facilities and other health care; Z79.01 Long term (current) use of anticoagulants; Z79.82 Long term (current) use of aspirin; Z79.899 Other long term (current) drug therapy
CPT/HCPCS: 36415; 71046; 71046-26; 80053; 83690; 83735; 84484; 85025; 87428-QW; 93005; 93971-26-LT; 93971-LT; 99285

== ENCOUNTER 2024-05-04 07:00 | Emergency (ER) | payer MEDICAID ==
[2024-05-04 07:19] VITALS: PULSE 60
[2024-05-04] MEDS ORDERED: Sodium Chloride 0.9% 10 ML Syringe FLUSH PRN (07:56)
[2024-05-04 09:19] VITALS: BP 95/65
== END 2024-05-04 09:38 | disposition home or self-care (01) ==
LOC: MW.ED 07:00
DX: M79.89 Other specified soft tissue disorders (principal); I11.0 Hypertensive heart disease with heart failure; I50.9 Heart failure, unspecified; Z79.01 Long term (current) use of anticoagulants; Z79.82 Long term (current) use of aspirin; Z79.899 Other long term (current) drug therapy; Z86.73 Personal history of transient ischemic attack (TIA), and cerebral infarction without residual deficits
CPT/HCPCS: 36415; 85379; 99283

== ENCOUNTER 2024-05-11 11:35 | Emergency (ER) | payer MEDICAID ==
[2024-05-11 13:11] VITALS: BP 95/52; PULSE 59
== END 2024-05-11 13:11 | disposition home or self-care (01) ==
LOC: MW.ED 11:35
DX: M70.32 Other bursitis of elbow, left elbow (principal); I11.0 Hypertensive heart disease with heart failure; I50.9 Heart failure, unspecified; Z75.8 Other problems related to medical facilities and other health care; Z88.6 Allergy status to analgesic agent; Z79.01 Long term (current) use of anticoagulants; Z79.82 Long term (current) use of aspirin; Z79.899 Other long term (current) drug therapy
CPT/HCPCS: 73080-26-LT; 73080-LT; 99283

== ENCOUNTER 2024-05-17 15:31 | Emergency (ER) | payer MEDICAID ==
[2024-05-17 19:01] VITALS: BP 100/71; PULSE 56
== END 2024-05-17 19:01 | disposition home or self-care (01) ==
LOC: MW.ED 15:31
DX: Z76.0 Encounter for issue of repeat prescription (principal); I11.0 Hypertensive heart disease with heart failure; I50.9 Heart failure, unspecified; Z79.82 Long term (current) use of aspirin; Z79.899 Other long term (current) drug therapy; Z79.01 Long term (current) use of anticoagulants; Z88.6 Allergy status to analgesic agent; Z75.8 Other problems related to medical facilities and other health care
CPT/HCPCS: 99281

== ENCOUNTER 2024-07-05 15:34 | Emergency (ER) | payer MEDICAID ==
[2024-07-05] MEDS ORDERED: Sodium Chloride 0.9% 10 ML Syringe FLUSH PRN (16:06)
[2024-07-05] MEDS ORDERED: Sodium Chloride 0.9% 2.5 ML Syringe FLUSH PRN (16:06)
[2024-07-05 16:26] LABS: BASOPHILS ABSOLUTE AUTO 0.02 K/uL (0.00-0.20); BASOPHILS PERCENT AUTO 0.4 % (0.0-1.0); EOSINOPHILS ABSOLUTE AUTO 0.08 K/uL (0.00-0.45); EOSINOPHILS PERCENT AUTO 1.6 % (0.0-6.0); HEMATOCRIT 35.3 % (42.0-52.0); HEMOGLOBIN 11.5 g/dL (14.0-18.0); IMMATURE GRAN ABSOLUTE AUTO 0.04 K/uL (0.00-0.05); IMMATURE GRAN PERCENT AUTO 0.8 % (0.0-0.4); LYMPHOCYTES ABSOLUTE AUTO 1.51 K/uL (1.00-4.80); LYMPHOCYTES PERCENT AUTO 29.3 % (24.0-44.0); MEAN CORPUSCULAR HEMOGLOBIN 31.5 pg (28.0-32.0); MEAN CORPUSCULAR HGB CONC 32.6 g/dL (32.0-36.0); MEAN CORPUSCULAR VOLUME 96.7 fL (83.0-99.0); MEAN PLATELET VOLUME 9.3 fL (9.4-12.4); MONOCYTES ABSOLUTE AUTO 0.56 K/uL (0.00-0.80); MONOCYTES PERCENT AUTO 10.9 % (0.0-8.0); NEUTROPHILS ABSOLUTE AUTO 2.94 K/uL (1.80-7.70); PLATELET COUNT,PLT 281 K/uL (150-400); RED BLOOD CELL COUNT 3.65 M/uL (4.52-5.90); WHITE BLOOD CELL COUNT,WBC 5.15 K/uL (3.9-11.3)
[2024-07-05] MEDS: Sodium Chloride 0.9% 500 ML IV SCH (16:27)
[2024-07-05 16:39] LABS: INR 1.19 (0.86-1.11)
[2024-07-05 17:09] LABS: ALBUMIN 3.5 g/dL (3.4-5.0); BILIRUBIN TOTAL 0.3 mg/dL (0.2-1.0); CARBON DIOXIDE,CO2 25.1 mmol/L (21.0-32.0); CREATININE 1.5 mg/dL (0.8-1.3); EST CRCL DRUG DOSING (CG) 59.26 mL/min; POTASSIUM,K 3.7 mmol/L (3.5-5.1); TSH ULTRASENSITIVE 1.22 uIU/mL (0.36-3.74)
[2024-07-05] MEDS: Iopamidol 755 MG/ML 500 ML Multipack Bottle IVPUSH STA (19:08)
[2024-07-05 20:25] VITALS: BP 100/67; PULSE 60
== END 2024-07-05 21:15 | disposition home or self-care (01) ==
LOC: MW.ED 15:34
DX: I95.9 Hypotension, unspecified (principal); I11.0 Hypertensive heart disease with heart failure; I50.9 Heart failure, unspecified; Z88.6 Allergy status to analgesic agent; Z79.01 Long term (current) use of anticoagulants; Z79.82 Long term (current) use of aspirin
CPT/HCPCS: 36415; 71045; 71275; 80053; 83605; 83690; 83880; 84443; 84484; 85025; 85610; 86850; 86900; 86901; 93005; 96360; 99285; J7040; Q9967; 99283

== ENCOUNTER 2024-08-13 12:56 | Emergency (ER) | payer MEDICAID ==
[2024-08-13] MEDS ORDERED: Sodium Chloride 0.9% 20 ML SDV IV PRN (13:18)
[2024-08-13] MEDS ORDERED: Sodium Chloride 0.9% 10 ML Syringe FLUSH PRN (13:18)
[2024-08-13] MEDS ORDERED: Sodium Chloride 0.9% 2.5 ML Syringe FLUSH PRN (13:18)
[2024-08-13 13:25] LABS: BASOPHILS ABSOLUTE AUTO 0.03 K/uL (0.00-0.20); BASOPHILS PERCENT AUTO 0.5 % (0.0-1.0); EOSINOPHILS ABSOLUTE AUTO 0.01 K/uL (0.00-0.45); EOSINOPHILS PERCENT AUTO 0.2 % (0.0-6.0); HEMATOCRIT 39.6 % (42.0-52.0); HEMOGLOBIN 13.1 g/dL (14.0-18.0); IMMATURE GRAN ABSOLUTE AUTO 0.02 K/uL (0.00-0.05); IMMATURE GRAN PERCENT AUTO 0.4 % (0.0-0.4); LYMPHOCYTES ABSOLUTE AUTO 1.37 K/uL (1.00-4.80); LYMPHOCYTES PERCENT AUTO 24.2 % (24.0-44.0); MEAN CORPUSCULAR HEMOGLOBIN 31.3 pg (28.0-32.0); MEAN CORPUSCULAR HGB CONC 33.1 g/dL (32.0-36.0); MEAN CORPUSCULAR VOLUME 94.5 fL (83.0-99.0); MEAN PLATELET VOLUME 9.6 fL (9.4-12.4); MONOCYTES ABSOLUTE AUTO 0.24 K/uL (0.00-0.80); MONOCYTES PERCENT AUTO 4.2 % (0.0-8.0); NEUTROPHILS PERCENT AUTO 70.5 % (41.0-71.0); PLATELET COUNT,PLT 256 K/uL (150-400); RED BLOOD CELL COUNT 4.19 M/uL (4.52-5.90); WHITE BLOOD CELL COUNT,WBC 5.67 K/uL (3.9-11.3)
[2024-08-13 13:38] LABS: INR 1.08 (0.86-1.11); PTT,PARTIAL THROMBOPLSTIN TIME 27.2 SEC (23.9-30.7)
[2024-08-13 13:55] LABS: MAGNESIUM 2.2 mg/dL (1.8-2.4)
[2024-08-13 15:34] LABS: APPEARANCE,URINE CLEAR; BILIRUBIN,URINE NEGATIVE (NEGATIVE); COLOR,URINE YELLOW; GLUCOSE,URINE >=1000 mg/dL (NEGATIVE); KETONES,URINE NEGATIVE (NEGATIVE); LEUKOCYTE ESTERASE,URINE NEGATIVE (NEGATIVE); NITRITE,URINE NEGATIVE (NEGATIVE); OCCULT BLOOD,URINE NEGATIVE (NEGATIVE); PROTEIN,URINE NEGATIVE (NEGATIVE); UROBILINOGEN,URINE 0.2 EU/dL (<2.0)
[2024-08-13 16:11] LABS: A/G RATIO 1.1 (0.9-1.6); ALBUMIN 3.5 g/dL (3.4-5.0); BILIRUBIN TOTAL 0.3 mg/dL (0.2-1.0); CARBON DIOXIDE,CO2 25.4 mmol/L (21.0-32.0); CREATININE 1.4 mg/dL (0.8-1.3); EST CRCL DRUG DOSING (CG) 61.56 mL/min; POTASSIUM,K 3.9 mmol/L (3.5-5.1); PROTEIN TOTAL,TP 6.8 g/dL (6.4-8.2)
[2024-08-13 16:20] VITALS: BP 108/68; PULSE 67
== END 2024-08-13 20:24 | disposition home or self-care (01) ==
LOC: MW.ED 12:56
DX: I49.9 Cardiac arrhythmia, unspecified (principal); I11.0 Hypertensive heart disease with heart failure; I50.9 Heart failure, unspecified; Z88.6 Allergy status to analgesic agent; Z79.01 Long term (current) use of anticoagulants; Z79.899 Other long term (current) drug therapy
CPT/HCPCS: 36415; 71045; 71045-26; 80053; 81003; 83735; 83880; 84484; 85025; 85610; 85730; 93005; 99283; 99285

== ENCOUNTER 2024-10-17 21:28 | Emergency (ER) | payer MEDICAID ==
[2024-10-17 22:03] VITALS: PULSE 60
[2024-10-17] MEDS: Ketorolac 30 MG/ML SDV IM ONE (22:57)
[2024-10-17 23:40] VITALS: BP 91/57
== END 2024-10-17 23:39 | disposition home or self-care (01) ==
LOC: MW.ED 21:28
DX: M25.811 Other specified joint disorders, right shoulder (principal); I11.0 Hypertensive heart disease with heart failure; I50.9 Heart failure, unspecified; Z88.6 Allergy status to analgesic agent; Z79.01 Long term (current) use of anticoagulants; Z79.82 Long term (current) use of aspirin; Z79.899 Other long term (current) drug therapy
CPT/HCPCS: 73030; 73080; 96372; 99283; A9270; J1885; 99282

== ENCOUNTER 2025-02-25 16:00 | Emergency (ER) | payer OTHER, MEDICAID ==
[2025-02-25 16:07] VITALS: BP 118/67; PULSE 62
== END 2025-02-25 18:03 | disposition home or self-care (01) ==
LOC: MW.ED 16:00
DX: S40.029A Contusion of unspecified upper arm, initial encounter (principal); I11.0 Hypertensive heart disease with heart failure; I50.9 Heart failure, unspecified; Z79.82 Long term (current) use of aspirin; Z79.899 Other long term (current) drug therapy; Z88.8 Allergy status to other drugs, medicaments and biological substances; V89.2XXA Person injured in unspecified motor-vehicle accident, traffic, initial encounter
CPT/HCPCS: 73020-26-LT; 73020-LT; 73060-26-LT; 73060-LT; 73090-26-LT; 73090-LT; 73100-26-LT; 73100-LT; 99283; 99284